=== PATIENT | female | born 1950 ===

== ENCOUNTER 2016-05-01 07:42 | Outpatient (RCR) | payer BC ==
[2016-05-01 07:57] LABS: MEAN CORPUSCULAR HGB CONC 33.1 g/dL (31.0-37.0); MEAN CORPUSCULAR VOLUME 96 FL (80-100); PLATELET COUNT 320 10^3uL (150-450); WHITE BLOOD COUNT 5.89 10^3uL (4.0-11.0)
[2016-05-01 08:03] LABS: MEAN CORPUSCULAR HEMOGLOBIN 31.8 PG (26.0-34.0)
[2016-05-01 08:15] LABS: BAND NEUTROPHILS % 0 % (0-6); EOSINOPHILS % 0 % (0-4); LYMPHOCYTES # 0.2 #; MONOCYTES # 0.1 #; MONOCYTES % 1 % (3-11); RBC MORPH NORMAL (NORMAL); SEGMENTED NEUTROPHILS % 95 % (51-67); TOTAL CELLS COUNTED 100
[2016-05-01 08:34] LABS: ALBUMIN 4.1 g/dL (3.4-5.0); ANION GAP 11.1 MEQ/L (3-15); CALCULATED IONIZED CALCIUM 4.2 mg/dL (3.8-4.6); MAGNESIUM* 2.2 mg/dL (1.6-2.3); PHOSPHORUS 3.9 mg/dL (2.4-4.9); TOTAL PROTEIN 7.4 g/dL (6.4-8.5)
== END 2016-07-30 | disposition home or self-care (01) ==
LOC: LAB 07:42
PROVIDERS: ATTEND Internal Medicine Hematology & Oncology
DX: C50.112 Malignant neoplasm of central portion of left female breast (principal); Z17.0 Estrogen receptor positive status [ER+]
CPT/HCPCS: 36415; 80053; 83615; 83735; 84100; 85007; 85027